=== PATIENT | male | born 1985 | race Caucasian/White ===

== ENCOUNTER 2016-08-29 22:32 | Emergency (ER) | payer OTHER ==
[~2016-08-29] VITALS: Ht 180.3 cm; Wt 80.0 kg
[2016-08-29 22:48] VITALS: BP 123/59; PULSE 71; RESP 16; TEMP 97.8; O2SAT 97
--- NOTE | 2016-08-30 00:03 | PD ---
HPI Chief Complaint: Suicide Ideation/Attempt Time Seen by Provider: 23:45 Travel History International Travel<30 days: No Contact w/Intl Traveler<30days: No Traveled to known affect area: No History of Present Illness HPI This is a 31-year-old male who presents under Paul act initiated by the police departed. The patient reports that he's been feeling increasingly depressed, suicidal over the past few months. He reports that his last year. He reports that today he lost his bearings and his wallet and this made him feel even more depressed. He reports that he has thoughts of jumping in front of traffic but he has not acted on these thoughts. He says that he moved here at some point in the past few months from [place]. He does not have a local psychiatrist. He says that he was seen a psychiatrist in [place]. He is denying any medical complaints at this time. Be on this history is difficult to obtain because the patient began to become verbally abusive. He refused any lab testing. [facility] Past Medical History Diminished Hearing: No Psychiatric: Yes (STATES PTSD BUT NO DIAGNOSED) Tetanus Vaccination: < 5 Years Influenza Vaccination: No Past Surgical History Surgical History: No Previous Surgery Social History Alcohol Use: Yes (1 PINT TONIGHT) Tobacco Use: Yes Substance Use: No Allergies-Medications (Allergen,Severity, Reaction): Coded Allergies: No Known Allergies (Unverified , 08/29/16) Reported Meds & Prescriptions Reported Meds & Active Scripts Active No Active Prescriptions or Reported Medications Review of Systems Except as stated in HPI: all other systems reviewed are Neg Physical Exam Narrative GENERAL: This is a well-developed well-nourished male who is in no acute distress. SKIN: Warm and dry. HEAD: Atraumatic. Normocephalic. EYES: Pupils equal and round. No scleral icterus. No injection or drainage. ENT: No nasal bleeding or discharge. Mucous membranes pink and moist. NECK: Trachea midline. No JVD. CARDIOVASCULAR: Regular rate and rhythm. No murmur appreciated. RESPIRATORY: No accessory muscle use. Clear to auscultation. Breath sounds equal bilaterally. GASTROINTESTINAL: Abdomen soft, non-tender, nondistended. MUSCULOSKELETAL: No obvious deformities. NEUROLOGICAL: Awake and alert. No obvious cranial nerve deficits. Motor grossly within normal limits. Normal speech. Data Data Last Documented VS Vital Signs Date Time Temp Pulse Resp B/P Pulse Ox O2 Delivery O2 Flow Rate FiO2 08/29/16 22:49 16 97 Room Air 08/29/16 22:48 97.8 71 123/59 Orders Complete Blood Count With Diff (08/29/16 22:50) Comprehensive Metabolic Panel (08/29/16 22:50) Drug Screen, Random Urine (08/29/16 22:50) Alcohol (Ethanol) (08/29/16 22:50) Salicylates (Aspirin) (08/29/16 22:50) Tylenol (Acetaminophen) (08/29/16 22:50) Psych Screen (08/29/16 22:50) ^ Sitter (08/29/16 23:59) MDM Medical Decision Making Medical Screen Exam Complete: Yes Emergency Medical Condition: Yes Medical Record Reviewed: Yes Differential Diagnosis Antisocial personality disorder, adjustment reaction, acute psychosis, substance induced mood disorder, major depressive disorder, homelessness Narrative Course 31-year-old male presents under Paul act for evaluation of depression, suicidal ideation. The patient is verbally abusive and will not participate in his care at this time. He is refusing any lab work. He likely has some degree of antisocial personality disorder. Mental health screening discussed with the patient. Psychiatric screen ordered. The patient is medically cleared for psychiatric disposition. Scripts No Active Prescriptions or Reported Meds Trace Pierce Aug 30, 2016 00:03
== END 2016-08-30 06:31 | disposition home or self-care (01) ==
LOC: NEPA 22:32
DX: F32.9 Major depressive disorder, single episode, unspecified (principal); R45.851 Suicidal ideations; Z72.0 Tobacco use
CPT/HCPCS: 99284